=== PATIENT | female | born 1995 | race Caucasian/White ===

== ENCOUNTER 2016-11-04 15:56 | Emergency (ER) | payer OTHER ==
[~2016-11-04] VITALS: Ht 165.1 cm; Wt 73.8 kg
[2016-11-04] MEDS ORDERED: SODIUM CHLORIDE 0.9% 1,000ML IVBOLUS ONE (17:00)
[2016-11-04] MEDS ORDERED: SODIUM CHLORIDE FLUSH 10ML SYR IVF ONE (17:00)
[2016-11-04] MEDS ORDERED: IBUPROFEN 200 MG TABLET PO ONE (17:00)
[2016-11-04] MEDS ORDERED: IBUPROFEN 200 MG TABLET ONE (17:06)
[2016-11-04 17:14] LABS: BLOOD UREA NITROGEN 8 mg/dL (7-18)
[2016-11-04] MEDS ORDERED: CEFTRIAXONE 1,000 MG in SODIUM CHLORIDE 0.9% 50 ML IV ONE (19:30)
[2016-11-04] MEDS ORDERED: CEFTRIAXONE PMX 1GM/50ML 50 ML ONE (19:36)
[2016-11-04 19:43] VITALS: BP 122/66
== END 2016-11-04 20:22 | disposition home or self-care (01) ==
LOC: ED 18:48
DX: N30.90 Cystitis, unspecified without hematuria (principal); N39.0 Urinary tract infection, site not specified
CPT/HCPCS: 36415; 80048; 81001; 82040; 83605; 84145; 85025; 87040; 87077; 87086; 87186; 96365; 99284; J0696; J7030

== ENCOUNTER 2017-10-25 12:23 | Emergency (ER) | payer OTHER ==
[~2017-10-25] VITALS: Ht 165.1 cm; Wt 73.5 kg
[2017-10-25] MEDS ORDERED: TESTOSTERONE SQ (12:38)
[2017-10-25] MEDS ORDERED: ASPIRIN 81 MG TABLET CHEW PO ONE (13:00)
[2017-10-25] MEDS ORDERED: ASPIRIN 81 MG TABLET CHEW ONE (13:07)
[2017-10-25 13:25] LABS: BASOPHILS # (AUTO) 0.03 x10^3/uL (0-0.1); BASOPHILS % (AUTO) 1 % (0-1); EOSINOPHILS % (AUTO) 2 % (1-7); LYMPHOCYTES # (AUTO) 2.35 x10^3/uL (1-3.4); LYMPHOCYTES % (AUTO) 35 % (22-44); MD NO; MEAN CORPUSCULAR HEMOGLOBIN 26.4 pg (27.0-34.8); MEAN CORPUSCULAR HGB CONC 32.1 g/dL (32.4-35.8); MEAN CORPUSCULAR VOLUME 82.3 fL (80-100); MONOCYTES # (AUTO) 0.47 x10^3/uL (0.2-0.8); MONOCYTES % (AUTO) 7 % (2-9); NEUTROPHILS # (AUTO) 3.78 x10^3/uL (1.8-6.8); NEUTROPHILS % (AUTO) 56 % (42-75); PLATELET COUNT 230 x10^3/uL (130-400); RED BLOOD COUNT 5.88 x10^6/uL (3.82-5.3); RED CELL DISTRIBUTION WIDTH 15.7 % (9.6-15.2)
[2017-10-25 13:37] LABS: ANION GAP 5 mmol/L (5-15); CALCIUM 8.7 mg/dL (8.5-10.1); CHLORIDE 108 mmol/L (98-107); CREATININE 0.89 mg/dL (0.55-1.02)
[2017-10-25 13:40] LABS: TROPONIN I < 0.015 ng/mL (0.000-0.045)
[2017-10-25 14:05] VITALS: BP 116/51
== END 2017-10-25 14:09 | disposition home or self-care (01) ==
LOC: ED 14:03
DX: R07.89 Other chest pain (principal)
CPT/HCPCS: 36415; 71045; 80048; 82040; 84484; 85025; 93005; 99285

== ENCOUNTER 2018-05-14 03:07 | Emergency (ER) | payer OTHER ==
[~2018-05-14] VITALS: Ht 165.1 cm; Wt 75.0 kg
[~2018-05-14 03:07] MED LIST: TESTOSTERONE SQ
[2018-05-14] MEDS ORDERED: KETOROLAC 30 MG/1 ML ONE (03:57)
[2018-05-14] MEDS ORDERED: ACETAMINOPHEN 500 MG TABLET ONE (03:58)
[2018-05-14] MEDS ORDERED: ACETAMINOPHEN 500 MG TABLET PO ONE (04:00)
[2018-05-14] MEDS ORDERED: KETOROLAC 30 MG/1 ML IM ONE (04:00)
[2018-05-14] MEDS ORDERED: LIDODERM 5% PATCH TD ONE ×2 (04:00→04:10)
[2018-05-14 05:25] VITALS: BP 100/45
== END 2018-05-14 05:34 | disposition home or self-care (01) ==
LOC: ED 03:30
DX: S39.012A Strain of muscle, fascia and tendon of lower back, initial encounter (principal); Z87.891 Personal history of nicotine dependence; X58.XXXA Exposure to other specified factors, initial encounter; Y93.89 Activity, other specified; Y92.89 Other specified places as the place of occurrence of the external cause; Y99.8 Other external cause status
CPT/HCPCS: 72110; 96372; 99283; J1885

== ENCOUNTER 2018-05-16 06:22 | Emergency (ER) | payer OTHER ==
[~2018-05-16] VITALS: Ht 165.1 cm; Wt 74.0 kg
[2018-05-16] MEDS ORDERED: ONDANSETRON ODT 4 MG PO ONE (07:00)
[2018-05-16] MEDS ORDERED: CYCLOBENZAPRINE 10 MG TABLET PO ONE (07:00)
[2018-05-16] MEDS ORDERED: KETOROLAC 30 MG/1 ML IM ONE (07:00)
[2018-05-16 07:19] LABS: BASOPHILS # (AUTO) 0.04 x10^3/uL (0-0.1); BASOPHILS % (AUTO) 1 % (0-1); EOSINOPHILS # (AUTO) 0.14 x10^3/uL (0-0.4); EOSINOPHILS % (AUTO) 2 % (1-7); LYMPHOCYTES # (AUTO) 1.68 x10^3/uL (1-3.4); LYMPHOCYTES % (AUTO) 24 % (22-44); MD NO; MEAN CORPUSCULAR HGB CONC 33.6 g/dL (32.4-35.8); MEAN CORPUSCULAR VOLUME 89.4 fL (80-100); MEAN PLATELET VOLUME 9.1 fL (7.4-10.4); MONOCYTES # (AUTO) 0.83 x10^3/uL (0.2-0.8); MONOCYTES % (AUTO) 12 % (2-9); NEUTROPHILS % (AUTO) 62 % (42-75); PLATELET COUNT 182 x10^3/uL (130-400); RED BLOOD COUNT 5.27 x10^6/uL (3.82-5.3); RED CELL DISTRIBUTION WIDTH 14.3 % (9.6-15.2)
[2018-05-16] MEDS ORDERED: CYCLOBENZAPRINE 10 MG TABLET ONE (07:20)
[2018-05-16] MEDS ORDERED: ONDANSETRON ODT 4 MG ONE (07:20)
[2018-05-16] MEDS ORDERED: KETOROLAC 30 MG/1 ML ONE (07:21)
[2018-05-16 07:24] LABS: ALBUMIN 3.6 g/dL (3.4-5.0); ANION GAP 7 mmol/L (5-15); CALCIUM 8.5 mg/dL (8.5-10.1); CHLORIDE 109 mmol/L (98-107); CREATININE 1.57 mg/dL (0.55-1.02)
[2018-05-16 10:09] LABS: MICROSCOPIC AUTO
[2018-05-16 10:15] LABS: CULTURE INDICATED? NO
[2018-05-16 11:20] VITALS: BP 128/85
== END 2018-05-16 11:47 | disposition home or self-care (01) ==
LOC: ED 10:14
DX: S39.012A Strain of muscle, fascia and tendon of lower back, initial encounter (principal); R11.2 Nausea with vomiting, unspecified; X58.XXXA Exposure to other specified factors, initial encounter; Y93.89 Activity, other specified; Y92.89 Other specified places as the place of occurrence of the external cause; Y99.8 Other external cause status
CPT/HCPCS: 36415; 80048; 81001; 82040; 84703; 85025; 96372; 99283; J1885; Q0162

== ENCOUNTER 2019-06-23 15:24 | Inpatient (IN) | payer OTHER ==
[~2019-06-23] VITALS: Ht 165.1 cm; Wt 98.1 kg
--- NOTE | 2019-06-23 15:26 | NUR ---
REPORT GIVEN TO ANNEMARIE, CARE TRANSFERRED.
[2019-06-23] MEDS ORDERED: SODIUM CHLORIDE FLUSH 10ML SYR IVF ONE (16:30)
[2019-06-23] MEDS ORDERED: SODIUM CHLORIDE 0.9% 1,000ML IVBOLUS ONE (16:30)
[2019-06-23] MEDS ORDERED: ONDANSETRON 2MG/ML, 2ML IVPush ONE (16:30)
[2019-06-23] MEDS ORDERED: FAMOTIDINE 20 MG/2 ML IV ONE (16:30)
[2019-06-23 16:45] LABS: ALANINE AMINOTRANSFERASE 24 U/L (12-78); ALBUMIN 3.1 g/dL (3.4-5.0); ANION GAP 6 mmol/L (5-15); CALCIUM 8.4 mg/dL (8.5-10.1); CHLORIDE 109 mmol/L (98-107); CREATININE 1.04 mg/dL (0.55-1.02)
[2019-06-23 16:47] LABS: ALKALINE PHOSPHATASE 74 U/L (45-117); TOTAL PROTEIN 6.8 g/dL (6.4-8.2)
[2019-06-23 16:57] LABS: MEAN CORPUSCULAR HEMOGLOBIN 32.7 pg (27.0-34.8); MEAN CORPUSCULAR HGB CONC 33.8 g/dL (32.4-35.8); MEAN CORPUSCULAR VOLUME 96.6 fL (80-100); RED BLOOD COUNT 4.82 x10^6/uL (3.82-5.3); RED CELL DISTRIBUTION WIDTH 13.6 % (9.6-15.2)
[2019-06-23] MEDS ORDERED: ONDANSETRON 2MG/ML, 2ML ONE (17:16)
[2019-06-23] MEDS ORDERED: CEFTRIAXONE PMX 1GM/50ML 50 ML ONE (17:16)
[2019-06-23] MEDS ORDERED: FAMOTIDINE 20 MG/2 ML ONE (17:16)
[2019-06-23 17:22] LABS: MEAN PLATELET VOLUME 9.2 fL (7.4-10.4)
[2019-06-23 17:23] LABS: MD YES; PLATELET COUNT 120 x10^3/uL (130-400)
[2019-06-23 17:30] LABS: BAND#(MANUAL) 2.79 x10^3/uL; BANDS%(MANUAL) 41 % (0-7); LYMPH#(MANUAL) 0.41 x10^3/uL (1-3.4); LYMPHS% (MANUAL) 6 % (22-44); METAMYELOCYTES# (MANUAL) 0.07 x10^3/uL (0-0); METAMYELOCYTES% (MANUAL) 1 % (0-1); MONOS#(MANUAL) 0.14 x10^3/uL (0.3-2.7); MONOS% (MANUAL) 2 % (2-9); SEGS% (MANUAL) 50 % (42-75)
[2019-06-23] MEDS ORDERED: CEFTRIAXONE PMX 1GM/50ML 50 ML IVPB ONE (17:30)
[2019-06-23 17:31] LABS: <PLATELET ESTIMATE> DECREASED; <PLT MORPHOLOGY> NORMAL PLT MORPH; <RBC MORPHOLOGY> NORMAL
[2019-06-23] MEDS ORDERED: IBUPROFEN 600 MG TABLET PO ONE (18:30)
[2019-06-23] MEDS ORDERED: IBUPROFEN 600 MG TABLET ONE (18:34)
[2019-06-23 19:10] LABS: MICROSCOPIC NOT IND
[2019-06-23 19:16] LABS: CULTURE INDICATED? NO
[2019-06-23] MEDS ORDERED: ACETAMINOPHEN 500 MG TABLET PO ONE (19:30)
[2019-06-23] MEDS ORDERED: ACETAMINOPHEN 500 MG TABLET ONE (19:58)
--- NOTE | 2019-06-23 20:02 | NUR ---
PT RESTING ON FAMILY JUAN RAMON AT FOR SUPPORT. PT UPDATED ON POC.
[2019-06-23] MEDS ORDERED: SODIUM CHLORIDE 0.9% 1,000 ML IV ONE (20:14)
[2019-06-23] MEDS ORDERED: SODIUM CHLORIDE FLUSH 10ML SYR IVF PRN (20:30)
--- NOTE | 2019-06-23 20:49 | NUR ---
REPORT TO ROWENA LACY
[2019-06-23 21:16] VITALS: BP 110/56
[2019-06-23] MEDS ORDERED: ACETAMINOPHEN 325 MG TABLET PO PRN (22:30)
[2019-06-23] MEDS: ENOXAPARIN 40 MG/0.4 ML SQ SCH (22:56)
[2019-06-23] MEDS: SODIUM CHLORIDE 0.9% 1,000 ML IV SCH (22:57)
[2019-06-24 01:07] VITALS: BP 96/60
[2019-06-24] MEDS: SODIUM CHLORIDE 0.9% 1,000 ML IV SCH (05:42)
[2019-06-24 06:14] LABS: ANION GAP 6 mmol/L (5-15); CALCIUM 8.1 mg/dL (8.5-10.1); CHLORIDE 112 mmol/L (98-107)
[2019-06-24 06:18] LABS: CREATININE 0.97 mg/dL (0.55-1.02)
[2019-06-24 06:20] LABS: MEAN CORPUSCULAR HEMOGLOBIN 32.5 pg (27.0-34.8); MEAN CORPUSCULAR HGB CONC 32.9 g/dL (32.4-35.8); MEAN CORPUSCULAR VOLUME 98.9 fL (80-100); RED BLOOD COUNT 4.63 x10^6/uL (3.82-5.3)
[2019-06-24 06:51] LABS: MD YES; MEAN PLATELET VOLUME 9.6 fL (7.4-10.4); PLATELET COUNT 67 x10^3/uL (130-400)
[2019-06-24 06:57] LABS: BAND#(MANUAL) 1.01 x10^3/uL; BANDS%(MANUAL) 13 % (0-7); LYMPH#(MANUAL) 2.18 x10^3/uL (1-3.4); LYMPHS% (MANUAL) 28 % (22-44); MONOS#(MANUAL) 0.31 x10^3/uL (0.3-2.7); MONOS% (MANUAL) 4 % (2-9); SEG#(MANUAL) 4.29 x10^3/uL (1.8-6.8); SEGS% (MANUAL) 55 % (42-75)
[2019-06-24 06:58] LABS: <PLATELET ESTIMATE> DECREASED; <PLT MORPHOLOGY> NORMAL PLT MORPH; <RBC MORPHOLOGY> NORMAL
[2019-06-24 07:04] VITALS: BP 118/70
[2019-06-24 11:53] LABS: RAPID INFLUENZA A Negative (Negative); RAPID INFLUENZA B Negative (Negative)
[2019-06-24] MEDS: IBUPROFEN 600 MG TABLET PO PRN ×2 (12:20→18:34)
[2019-06-24] MEDS: ONDANSETRON 2MG/ML, 2ML IVPush PRN ×2 (12:20→18:33)
[2019-06-24 14:38] VITALS: BP 106/63
[2019-06-24 20:07] VITALS: BP 100/61
[2019-06-24] MEDS: ENOXAPARIN 40 MG/0.4 ML SQ SCH (21:43)
[2019-06-24] MEDS ORDERED: SODIUM CHLORIDE 0.9% 1,000 ML IV SCH (22:24)
[2019-06-25 00:43] VITALS: BP 115/70
[2019-06-25] MEDS: IBUPROFEN 600 MG TABLET PO PRN (01:39)
[2019-06-25] MEDS: SODIUM CHLORIDE 0.9% 1,000 ML IV SCH ×2 (01:39→09:08)
[2019-06-25 06:09] LABS: ALBUMIN 2.7 g/dL (3.4-5.0); ANION GAP 5 mmol/L (5-15); CALCIUM 8.2 mg/dL (8.5-10.1); CHLORIDE 112 mmol/L (98-107)
[2019-06-25 06:18] LABS: ALANINE AMINOTRANSFERASE 17 U/L (12-78); ALKALINE PHOSPHATASE 63 U/L (45-117); BILIRUBIN,TOTAL 0.5 mg/dL (0.2-1.0); TOTAL PROTEIN 6.2 g/dL (6.4-8.2)
[2019-06-25 06:25] LABS: MEAN CORPUSCULAR HEMOGLOBIN 32.1 pg (27.0-34.8); MEAN CORPUSCULAR HGB CONC 33.2 g/dL (32.4-35.8); MEAN CORPUSCULAR VOLUME 96.7 fL (80-100); MEAN PLATELET VOLUME 10.3 fL (7.4-10.4); PLATELET COUNT 59 x10^3/uL (130-400); RED BLOOD COUNT 4.42 x10^6/uL (3.82-5.3); RED CELL DISTRIBUTION WIDTH 14.3 % (9.6-15.2)
[2019-06-25 06:27] LABS: BASOPHILS # (AUTO) 0.02 x10^3/uL (0-0.1); BASOPHILS % (AUTO) 1 % (0-1); EOSINOPHILS # (AUTO) 0.04 x10^3/uL (0-0.4); EOSINOPHILS % (AUTO) 1 % (1-7); LYMPHOCYTES # (AUTO) 2.51 x10^3/uL (1-3.4); LYMPHOCYTES % (AUTO) 46 % (22-44); MD SCAN; MONOCYTES # (AUTO) 0.48 x10^3/uL (0.2-0.8); MONOCYTES % (AUTO) 9 % (2-9); NEUTROPHILS # (AUTO) 2.44 x10^3/uL (1.8-6.8); NEUTROPHILS % (AUTO) 44 % (42-75)
[2019-06-25 08:05] VITALS: BP 91/56
[2019-06-25 13:28] VITALS: BP 121/73
[2019-06-25] MEDS ORDERED: IBUP-1222 PO (13:51)
[2019-06-25] MEDS ORDERED: ONDA4VIA60 PO (13:51)
== END 2019-06-25 15:35 | disposition home or self-care (01) | DRG 392 ==
LOC: EDSEX → ED 20:42 → EDIP 20:45 → 3N 21:12 → DCLOUNGE 06-25 15:25
PROVIDERS: ADMIT Family Medicine; ATTEND Family Medicine
DX: K52.9 Noninfective gastroenteritis and colitis, unspecified (principal); E44.1 Mild protein-calorie malnutrition; B34.9 Viral infection, unspecified; D69.59 Other secondary thrombocytopenia; F17.200 Nicotine dependence, unspecified, uncomplicated; F64.9 Gender identity disorder, unspecified; Z68.36 Body mass index [BMI] 36.0-36.9, adult
CPT/HCPCS: 36415; 84145; 87400; 96365; 96375; 99291; J3490; 71045; 80048; 80053; 81003; 83605; 83690; 83735; 85025; 87040; G0378; J0696; J1650; J2405; J7030

== ENCOUNTER 2019-06-26 10:27 | Inpatient (IN) | payer OTHER ==
[~2019-06-26] VITALS: Ht 165.1 cm; Wt 63.4 kg
[~2019-06-26 10:27] MED LIST changes: +IBUP-1222 PO; +ONDA4VIA60 PO
[2019-06-26] MEDS: PLEASE ENTER HEIGHT AND WEIGHT MC SCH ×2 (11:30→19:30)
[2019-06-26] MEDS ORDERED: ACETAMINOPHEN 325 MG TABLET PO PRN (12:00)
[2019-06-26] MEDS ORDERED: ONDANSETRON 2MG/ML, 2ML IVPush PRN (12:00)
[2019-06-26 12:55] LABS: ALANINE AMINOTRANSFERASE 25 U/L (12-78); ALBUMIN 3.3 g/dL (3.4-5.0); ANION GAP 8 mmol/L (5-15); CHLORIDE 110 mmol/L (98-107); CREATININE 0.89 mg/dL (0.7-1.3)
[2019-06-26 12:57] LABS: ALKALINE PHOSPHATASE 84 U/L (45-117); BILIRUBIN,TOTAL 0.5 mg/dL (0.2-1.0); TOTAL PROTEIN 7.6 g/dL (6.4-8.2)
[2019-06-26] MEDS: CEFTRIAXONE PMX 1GM/50ML 50 ML IV SCH (13:29)
[2019-06-26 13:41] LABS: MEAN CORPUSCULAR HEMOGLOBIN 31.8 pg (27.5-34.5); MEAN CORPUSCULAR VOLUME 96.4 fL (81-97); RED BLOOD COUNT 4.96 x10^6/uL (4.38-5.82); RED CELL DISTRIBUTION WIDTH 14.6 % (9.4-14.8)
[2019-06-26 13:42] LABS: PLATELET COUNT 104 x10^3/uL (130-400)
[2019-06-26 13:45] LABS: MD YES
[2019-06-26 13:47] LABS: BAND#(MANUAL) 0.15 x10^3/uL; BANDS%(MANUAL) 3 % (0-7); BASOS#(MANUAL) 0.05 x10^3/uL (0-0.1); BASOS% (MANUAL) 1 % (0-1); EOS#(MANUAL) 0.05 x10^3/uL (0.0-0.4); EOS% (MANUAL) 1 % (1-7); LYMPH#(MANUAL) 1.86 x10^3/uL (1-3.4); LYMPHS% (MANUAL) 38 % (22-44); MONOS#(MANUAL) 0.15 x10^3/uL (0.3-2.7); MONOS% (MANUAL) 3 % (2-9); SEG#(MANUAL) 2.55 x10^3/uL (1.8-6.8); SEGS% (MANUAL) 52 % (42-75)
[2019-06-26 13:48] LABS: REACTIVE LYMPHS % (MANUAL) 2 % (0-0)
[2019-06-26 13:49] LABS: <PLATELET ESTIMATE> DECREASED; <RBC MORPHOLOGY> NORMAL
[2019-06-26 13:50] LABS: LARGE PLATELETS 1+
[2019-06-26 14:20] VITALS: BP 121/70
[2019-06-26 19:59] LABS: MICROSCOPIC INDICATED
[2019-06-26 20:05] LABS: CULTURE INDICATED? NO
[2019-06-26 21:30] VITALS: BP 132/73
[2019-06-27 01:31] VITALS: BP 132/80
[2019-06-27] MEDS: PLEASE ENTER HEIGHT AND WEIGHT MC SCH ×2 (03:30→11:30)
[2019-06-27 06:42] LABS: BASOPHILS # (AUTO) 0.02 x10^3/uL (0-0.1); BASOPHILS % (AUTO) 0 % (0-1); EOSINOPHILS # (AUTO) 0.07 x10^3/uL (0-0.4); EOSINOPHILS % (AUTO) 1 % (1-7); LYMPHOCYTES # (AUTO) 2.15 x10^3/uL (1-3.4); LYMPHOCYTES % (AUTO) 37 % (22-44); MD NO; MEAN CORPUSCULAR HEMOGLOBIN 31.9 pg (27.5-34.5); MEAN CORPUSCULAR HGB CONC 32.8 g/dL (33.2-36.2); MEAN CORPUSCULAR VOLUME 97.2 fL (81-97); MEAN PLATELET VOLUME 10.3 fL (7.4-10.4); MONOCYTES # (AUTO) 0.56 x10^3/uL (0.2-0.8); MONOCYTES % (AUTO) 10 % (2-9); NEUTROPHILS # (AUTO) 3.07 x10^3/uL (1.8-6.8); NEUTROPHILS % (AUTO) 52 % (42-75); PLATELET COUNT 114 x10^3/uL (130-400); RED BLOOD COUNT 4.66 x10^6/uL (4.38-5.82); RED CELL DISTRIBUTION WIDTH 14.2 % (9.4-14.8)
[2019-06-27 06:54] LABS: ANION GAP 8 mmol/L (5-15); CALCIUM 8.8 mg/dL (8.5-10.1); CHLORIDE 110 mmol/L (98-107); CREATININE 0.76 mg/dL (0.7-1.3)
[2019-06-27 08:34] VITALS: BP 122/73
[2019-06-27] MEDS: CEFTRIAXONE PMX 1GM/50ML 50 ML IV SCH (12:48)
[2019-06-27 13:17] VITALS: BP 109/70
[2019-06-27] MEDS ORDERED: CEFTRIAXONE PMX 1GM/50ML 50 ML IV ONE (18:30)
[2019-06-27 20:04] VITALS: BP 120/76
[2019-06-28 01:19] VITALS: BP 121/73
[2019-06-28 08:09] LABS: BASOPHILS # (AUTO) 0.04 x10^3/uL (0-0.1); BASOPHILS % (AUTO) 1 % (0-1); EOSINOPHILS # (AUTO) 0.09 x10^3/uL (0-0.4); EOSINOPHILS % (AUTO) 1 % (1-7); LYMPHOCYTES # (AUTO) 2.48 x10^3/uL (1-3.4); LYMPHOCYTES % (AUTO) 36 % (22-44); MD NO; MEAN CORPUSCULAR HGB CONC 33.1 g/dL (33.2-36.2); MEAN CORPUSCULAR VOLUME 96.9 fL (81-97); MEAN PLATELET VOLUME 8.7 fL (7.4-10.4); MONOCYTES # (AUTO) 0.74 x10^3/uL (0.2-0.8); MONOCYTES % (AUTO) 11 % (2-9); NEUTROPHILS # (AUTO) 3.48 x10^3/uL (1.8-6.8); NEUTROPHILS % (AUTO) 51 % (42-75); PLATELET COUNT 181 x10^3/uL (130-400); RED BLOOD COUNT 4.99 x10^6/uL (4.38-5.82); RED CELL DISTRIBUTION WIDTH 14.2 % (9.4-14.8)
[2019-06-28 08:11] LABS: ANION GAP 9 mmol/L (5-15); CHLORIDE 110 mmol/L (98-107)
[2019-06-28 08:12] LABS: CREATININE 0.96 mg/dL (0.7-1.3)
[2019-06-28 08:18] VITALS: BP 119/70
[2019-06-28 13:42] VITALS: BP 108/68
[2019-06-28] MEDS: CEFTRIAXONE PMX 2GM/50ML 50 ML IV SCH (14:23)
[2019-06-28 19:54] VITALS: BP 127/78
[2019-06-29 01:27] VITALS: BP 115/71
[2019-06-29 08:00] VITALS: BP 103/68
[2019-06-29 13:17] VITALS: BP 118/71
[2019-06-29] MEDS: CEFTRIAXONE PMX 2GM/50ML 50 ML IV SCH (13:59)
[2019-06-29 19:50] VITALS: BP 115/69
[2019-06-30 00:35] VITALS: BP 116/64
[2019-06-30 07:52] VITALS: BP 105/69
[2019-06-30] MEDS ORDERED: CEFTRIAXONE PMX 2GM/50ML 50 ML IV ONE (12:00)
[2019-06-30 13:35] VITALS: BP 119/81
== END 2019-06-30 14:44 | disposition home or self-care (01) | DRG 872 ==
LOC: 3N 10:29 → DCLOUNGE 06-30 14:37
PROVIDERS: ADMIT Family Medicine; ATTEND Family Medicine
PROC: B5181ZA Fluoroscopy of Superior Vena Cava using Low Osmolar Contrast, Guidance (ICD-10-PCS; principal; 2019-06-29)
PROC: 02HV33Z Insertion of Infusion Device into Superior Vena Cava, Percutaneous Approach (ICD-10-PCS; 2019-06-29)
PROC: B548ZZA Ultrasonography of Superior Vena Cava, Guidance (ICD-10-PCS; 2019-06-29)
DX: A41.9 Sepsis, unspecified organism (principal); A04.9 Bacterial intestinal infection, unspecified; Q23.1 Congenital insufficiency of aortic valve; F19.20 Other psychoactive substance dependence, uncomplicated; Z88.8 Allergy status to other drugs, medicaments and biological substances; D69.6 Thrombocytopenia, unspecified; Z83.3 Family history of diabetes mellitus; Z82.49 Family history of ischemic heart disease and other diseases of the circulatory system; I10 Essential (primary) hypertension; F64.9 Gender identity disorder, unspecified; F12.10 Cannabis abuse, uncomplicated
CPT/HCPCS: 36415; 36573; 80048; 80053; 81001; 85025; 87040; 87046; 87427; 93306; G0378; J0696; C1751